=== PATIENT | female | born 1980 | race Caucasian/White ===

== ENCOUNTER 2018-02-14 01:00 | Inpatient (IN) | payer BC ==
[~2018-02-14] VITALS: Ht 160 cm; Wt 75.3 kg
[2018-02-14] MEDS ORDERED: TERBUTALINE SULFATE 1 MG/ML VIAL SUBCUT ONE (02:30)
[2018-02-14] MEDS ORDERED: OXYTOCIN/0.9 % SODIUM CHLORIDE 1,000 ML IV SCH ×2 (02:30→15:28)
[2018-02-14] MEDS ORDERED: LR 1,000 ML IV SCH (02:30)
[2018-02-14] MEDS ORDERED: NALBUPHINE HCL 10 MG/ML AMP IVP PRN (02:30)
[2018-02-14] MEDS ORDERED: MISOPROSTOL 100 MCG TABLET (CYTOTEC) PO PRN ×2 (02:30→04:15)
[2018-02-14 03:08] LABS: HEMATOCRIT 36.5 % (36-48); HEMOGLOBIN 12.3 g/dL (12.0-16.0); MEAN CORPUSCULAR HEMOGLOBIN 31 pg (27-31); MEAN CORPUSCULAR HGB CONC 34 % (32-36); MEAN CORPUSCULAR VOLUME 91 fL (79.0-98.0); PLATELET COUNT (AUTO) 338 K/uL (130-430); RED BLOOD CELL COUNT(AUTO) 4.01 MIL/uL (4.2-6.2); RED CELL DISTRIBUTION WIDTH 13.1 % (9.0-15.0)
[2018-02-14 04:06] LABS: BAND % (MANUAL) 2 % (0-6); BASOPHILS % (MANUAL) 0 % (0-2); EOSINOPHILS % (MANUAL) 1 % (0-7); LYMPHOCYTES % (MANUAL) 32 % (20-46); MONOCYTES % (MANUAL) 6 % (0-11)
[2018-02-14] MEDS ORDERED: MISOPROSTOL 100 MCG TABLET (CYTOTEC) VG PRN (07:00)
[2018-02-14] MEDS ORDERED: ROPIVACAINE 0.2% 100 ML ONE (07:48)
[2018-02-14] MEDS ORDERED: fentaNYL CITRATE/PF 100 MCG/2 ML AMP ONE (07:48)
[2018-02-14] MEDS ORDERED: LR 500 ML IV ONE (08:25)
[2018-02-14] MEDS ORDERED: FENT2mCg/mL-ROPIVA0.2%/NS EPID 150 ML EP SCH (08:30)
[2018-02-14 10:09] VITALS: BP_SYST 123
[2018-02-14] MEDS ORDERED: MINERAL OIL 30 ML UDC PO ONE (10:27)
[2018-02-14] MEDS ORDERED: OXYTOCIN/0.9 % SODIUM CHLORIDE 1,000 ML IV ONE (15:28)
[2018-02-14] MEDS ORDERED: SENNOSIDES/DOCUSATE SODIUM 1 TAB TABLET(SENOKOT-S) PO PRN (15:30)
[2018-02-14] MEDS ORDERED: OXYCODONE/ACETAMINOPHEN 5-325 TABLET PO PRN ×2 (15:30)
[2018-02-14] MEDS ORDERED: DERMOPLAST SPRAY TP PRN (15:30)
[2018-02-14] MEDS ORDERED: WITCH HAZEL LEAF 1 MED.PAD MED.PAD TP PRN (15:30)
[2018-02-14] MEDS ORDERED: LANOLIN 7 GM OINT. TP PRN (15:30)
[2018-02-14] MEDS ORDERED: DOCUSATE SODIUM 100 MG CAPSULE PO PRN (15:30)
[2018-02-14] MEDS ORDERED: ANUSOL 1 EA SUPP.RECT (PREPARATION H) RC PRN (15:30)
[2018-02-14] MEDS ORDERED: HYDROCORTISONE 0.5%, 28.35 GM TOPICAL CREAM TP PRN (15:30)
[2018-02-14] MEDS ORDERED: MEASLES,MUMPS&RUBELLA VACC/PF 12500 UNIT/0.5 ML VIAL SUBQ PRN (15:30)
[2018-02-14] MEDS ORDERED: ACETAMINOPHEN 325 MG TABLET PO PRN (15:30)
[2018-02-14] MEDS ORDERED: DIPH-TET-PERTUS Vaccine 0.5 ML VIAL (ADACEL) I.M. PRN (15:30)
[2018-02-14] MEDS ORDERED: RHO(D) IMMUNE GLOBULIN/MALTOSE 1500 UNITS/1.3 ML (WINHRO) IM PRN (15:30)
[2018-02-14] MEDS ORDERED: METHYLERGONOVINE MALEATE 0.2 MG TABLET PO PRN (15:30)
[2018-02-14] MEDS: IBUPROFEN 600 MG TABLET PO SCH ×2 (18:15→23:51)
[2018-02-14] MEDS ORDERED: TEMAZEPAM 15 MG CAPSULE PO PRN (21:00)
[2018-02-15] MEDS: IBUPROFEN 600 MG TABLET PO SCH ×2 (06:00→12:12)
[2018-02-15 06:55] LABS: HEMATOCRIT 33.2 % (36-48); HEMOGLOBIN 11.2 g/dL (12.0-16.0)
== END 2018-02-15 16:00 | disposition home or self-care (01) | DRG 807 ==
LOC: SPU 01:00
PROVIDERS: ADMIT Obstetrics & Gynecology; ATTEND Obstetrics & Gynecology
PROC: 10E0XZZ Delivery of Products of Conception, External Approach (ICD-10-PCS; principal; 2018-02-14)
PROC: 3E0R3BZ Introduction of Anesthetic Agent into Spinal Canal, Percutaneous Approach (ICD-10-PCS; 2018-02-14)
PROC: 00HU33Z Insertion of Infusion Device into Spinal Canal, Percutaneous Approach (ICD-10-PCS; 2018-02-14)
PROC: 3E033VJ Introduction of Other Hormone into Peripheral Vein, Percutaneous Approach (ICD-10-PCS; 2018-02-14)
PROC: 0HQ9XZZ Repair Perineum Skin, External Approach (ICD-10-PCS; 2018-02-14)
DX: O70.0 First degree perineal laceration during delivery (principal); Z37.0 Single live birth; Z3A.40 40 weeks gestation of pregnancy; O09.523 Supervision of elderly multigravida, third trimester
CPT/HCPCS: 36415; 81002-TC; 85007; 85018-TC; 85027; 86592; 86886; 86900; 86901; J2590; J2795; J3010; J7120